=== PATIENT | male | born 1990 | race Caucasian/White ===

== ENCOUNTER 2020-04-17 08:32 | Outpatient (REF) | payer BC, SELFPAY ==
[2020-04-17 12:20] LABS: Alanine Aminotransferase 67 U/L (0-40); Albumin Level 4.2 g/dL (3.5-5.0); Alkaline Phosphatase 96 U/L (39-117); Anion Gap 15 (12-20); Aspartate Amino Transferase 64 U/L (5-37); Bilirubin Total 0.9 mg/dL (0.0-1.0); Blood Urea Nitrogen 8 mg/dL (9-16); Calcium 9.1 mg/dL (8.4-10.2); Carbon Dioxide 27 mmol/L (22-29); Chloride 102 mmol/L (96-108); Estimated Glomerular Filt Rate > 60; Glucose Fasting 91 mg/dL (60-99); Potassium 4.6 mmol/l (3.3-5.1); Sodium 139 mmol/L (135-145); Total Protein 7.5 g/dL (6.5-8.0)
[2020-04-17 12:28] LABS: TSH reflex Free T4 1.16 mIU/mL (0.32-4.0)
[2020-04-17 12:35] LABS: Creatinine Urine 170.47 mg/dL; Microalbum/Creatinine Ratio Ur 5.2 ug/mg cr
[2020-04-17 12:40] LABS: Cholesterol 188 mg/dL; HDL Cholesterol 27 mg/dL; LDL Cholesterol Calculated 142 mg/dl; Triglycerides 99 mg/dL
== END 2020-04-17 08:33 | disposition home or self-care (01) ==
LOC: HO.WFDLDS 08:32
PROVIDERS: Visit Provider Family Medicine
DX: R03.0 Elevated blood-pressure reading, without diagnosis of hypertension (principal); Z00.00 Encounter for general adult medical examination without abnormal findings
CPT/HCPCS: 80053; 80061; 82043; 84443